=== PATIENT | male | born 1965 | race Caucasian/White ===

== ENCOUNTER → 2016-05-18 | Outpatient (CLI) | payer OTHER ==
--- NOTE | 2016-05-18 19:41 | DX ---
Bilateral Knees, AP standing, Esperanza And Lateral Views Reason for examination: Bilateral chronic knee pain in a 51-year-old male; no report of recent specif ic trauma. Findings: A fracture or other acute osseous abnormality is not identified. Bilateral degenerative ost eoarthritic changes are seen. There is joint space loss, bony spurring and sclerosis involving the me dial compartments bilaterally. Joint space loss is seen involving the patellofemoral compartments charly aterally. Hypertrophic degenerative changes in the patellofemoral compartment are more severe on the right. No significant joint effusion is seen. Intra-articular loose bodies are noted in the suprapate llar region on the right side. Impression: 1. Negative for fracture. 2. Degenerative osteoarthritic changes bilaterally most pronounced in the medial compartments bilater ally and in the right patellofemoral compartment.
== END ==
LOC: FIMAGING 18:44
PROVIDERS: ATTEND Registered Nurse
DX: M25.561 Pain in right knee (principal); M25.562 Pain in left knee

== ENCOUNTER 2016-06-06 23:28 | Observation (INO) | payer OTHER ==
--- NOTE | 2016-06-06 23:49 | EDPHY ---
H & P Stated Complaint: left abd pain since 2100 HPI/ROS: HPI CHIEF COMPLAINT: Abdominal pain HISTORY OF PRESENT ILLNESS: This patient is a very pleasant 51-year-old male, significant past medical history for chronic knee and feet pain takes Percocet, tells me that around 9 o'clock this evening he had abrupt onset left upper quadrant pain he describes as a sharp pain nonradiating he denies pain going to his left testicle or left lower quadrant he denies this pain coming from his back. Patient tells me that the pain is relentless, constant sharp left upper quadrant he denies chest pain or shortness of breath. Denies vomiting. Patient does endorse nausea when the pain becomes severe. Past Medical History: Chronic knee and feet pain Past Surgical History: Diverticulitis Social History: Denies use of drugs alcohol tobacco products Family History: Noncontributory ROS REVIEW OF SYSTEMS: A comprehensive 10 point review of systems is otherwise negative aside from elements mentioned in the history of present illness. Exam Constitutional triage nursing summary reviewed, vital signs reviewed, awake/ alert. Eyes normal conjunctivae and sclera, EOMI, PERRLA. HENT normal inspection, atraumatic, moist mucus membranes, no epistaxis, neck supple/ no meningismus, no raccoon eyes. Respiratory clear to auscultation bilaterally, normal breath sounds, no respiratory distress, no wheezing. Cardiovascular rate normal, regular rhythm, no murmur, no edema, distal pulses normal. Gastrointestinal soft, moderate, tender palpation in left upper quadrant , no rebound, no guarding, normal bowel sounds, no distension, no pulsatile mass. Genitourinary no CVA tenderness. Musculoskeletal no midline vertebral tenderness, full range of motion, no calf swelling, no tenderness of extremities, no meningismus, good pulses, neurovascularly intact. Skin pink, warm, & dry, no rash, skin atraumatic. Neurologic awake, alert and oriented x 3, AAOx3, moves all 4 extremities equally, motor intact, sensory intact, CN II-XII intact, normal cerebellar, normal vision, normal speech. Psychiatric normal mood/affect. Heme/Lymph/Immune no lymphadenopathy. Differential diagnosis includes but is not limited to and in no particular order : splenic infarct, kidney stone, Bowel obstruction, appendicitis, gallbladder disease, diverticulitis, colitis, enteritis, perforated viscus, gastritis, GERD , esophagitis, urinary tract infection, pyelonephritis, Medical Decision Making:this patient will have an IV established receive a fluid bolus, 1 mg IV Dilaudid for pain control, 4 mg IV Zofran for nausea we will obtain blood work including an I-STAT creatinine and he will have a CT scan abdomen pelvis with IV contrast to help delineate his severe left upper quadrant abdominal pain. Re-evaluation: EKG interpretation by me on record in [employer] system. Impression time of EKG is 12:09 a.m. this is sinus rhythm rate of 83, nonspecific intraventricular conduction delay present. There is no acute ischemic changes specifically no ST elevation, ST depression, T-wave abnormalities are prolonged intervals. CT scan of the abdomen pelvis with IV contrast The results of the study are this shows acute diverticulitis, this also shows a left distal ureteral stone 3 mm x 3 mm. There is hydronephrosis present. Bladder wall thickening. Also noted a right lung nodule that will need follow-up. The study was read by Dr. Orta. I viewed the images myself on the PACS system. 0145: this patient is a 3 mm UVJ stone. Also has acute diverticulitis. I have ordered him Cipro and Flagyl. Due to his ongoing abdominal pain and kidney stone diverticulitis will be admitted overnight to the hospitalist service for observation IV fluids, pain medicine. Unclear if he actually truly has acute diverticulitis however that is what the CT scan showing he is really not tender in his left lower quadrant. He has pain in his left upper quadrant an obvious kidney stone most likely causing his pain. Source: Patient - Personal History Current Tetanus/Diphtheria Vaccine: Unsure Current Tetanus Diphtheria and Acellular Pertussis (TDAP): Unsure - Medical/Surgical History Hx Asthma: No Hx Chronic Respiratory Disease: No Hx Diabetes: No Hx Cardiac Disease: No Hx Renal Disease: No Hx Cirrhosis: No Hx Alcoholism: No Hx HIV/AIDS: No Hx Splenectomy or Spleen Trauma: No Other PMH: diverticulitis, peripheral neuropathy, arthritis in knees and feet, - Social History Smoking Status: Former smoker Constitutional: Initial Vital Signs Temperature (C) 36.6 C 06/06/16 23:31 Heart Rate 90 06/06/16 23:31 Respiratory Rate 18 06/06/16 23:31 Blood Pressure 146/82 H 06/06/16 23:31 O2 Sat (%) 92 06/06/16 23:31 O2 Delivery Mode Room Air O2 (L/minute) 2 Allergies/Adverse Reactions: Penicillins Allergy (Severe, Verified 06/06/16 23:35) Anaphylaxis walnut Allergy (Severe, Verified 06/06/16 23:35) Anaphylaxis Home Medications: Medication Instructions Recorded HCTZ (*) 06/06/16 Levothyroxine 06/06/16 PRILOSEC 06/06/16 Medical Decision Making - Data Points Laboratory Results: Laboratory Results 06/07/16 00:10 06/07/16 00:10 06/07/16 06/07/16 06/07/16 00:45 00:10 00:04 WBC 8.32 10^3/uL (3.80-9.50) RBC 4.61 10^6/uL (4.40-6.38) Hgb 13.2 L g/dL (13.7-17.5) POC Hgb 13.6 L gm/dL (14.5-17.3) Hct 39.4 L % (40.0-51.0) POC Hct 40 L % (42.8-50.6) MCV 85.5 fL (81.5-99.8) MCH 28.6 pg (27.9-34.1) MCHC 33.5 g/dL (32.4-36.7) RDW 13.5 % (11.5-15.2) Plt Count 257 10^3/uL (150-400) MPV 8.7 fL (8.7-11.7) Neut % (Auto) 73.8 % (39.3-74.2) Lymph % (Auto) 16.9 % (15.0-45.0) [place] % (Auto) 7.6 % (4.5-13.0) Eos % (Auto) 1.1 % (0.6-7.6) Baso % (Auto) 0.2 L % (0.3-1.7) Nucleat RBC Rel Count 0.0 % (0.0-0.2) Absolute Neuts (auto) 6.14 10^3/uL (1.70-6.50) Absolute Lymphs (auto) 1.41 10^3/uL (1.00-3.00) Absolute Monos (auto) 0.63 10^3/uL (0.30-0.80) Absolute Eos (auto) 0.09 10^3/uL (0.03-0.40) Absolute Basos (auto) 0.02 10^3/uL (0.02-0.10) Absolute Nucleated RBC 0.00 10^3/uL (0-0.01) Immature Gran % 0.4 % (0.0-1.1) Immature Gran # 0.03 10^3/uL (0.00-0.10) PT 13.5 SEC (12.0-15.0) INR 1.04 (0.83-1.16) APTT 27.1 SEC (23.0-38.0) VBG Lactic Acid 2.1 mmol/L 2.0 mmol/L (0.7-2.1) (0.7-2.1) POC Sodium 140 mEq/L (134-144) Sodium 140 mEq/L (134-144) POC Potassium 3.6 mEq/L (3.3-5.0) Potassium 3.9 mEq/L (3.5-5.2) POC Chloride 101 mEq/L (96-108) Chloride 105 mEq/L (97-110) Carbon Dioxide 25 mEq/l (22-31) Anion Gap 10 mEq/L (8-16) POC BUN 18 mg/dL (7-23) BUN 19 mg/dL (7-23) Creatinine 1.1 mg/dL (0.7-1.3) POC Creatinine 1.2 mg/dL (0.8-1.5) Estimated GFR > 60 Glucose 122 H mg/dL (70-100) POC Glucose 126 H mg/dL (70-100) Calcium 9.0 mg/dL (8.5-10.4) Total Bilirubin 0.6 mg/dL (0.1-1.4) Conjugated Bilirubin 0.3 mg/dL (0.0-0.5) Unconjugated Bilirubin 0.3 mg/dL (0.0-1.1) AST 25 IU/L (17-59) ALT 38 IU/L (21-72) Alkaline Phosphatase 84 IU/L (38-126) Troponin I < 0.012 ng/mL (0-0.034) Total Protein 6.4 g/dL (6.3-8.2) Albumin 3.4 L g/dL (3.5-5.0) Lipase 34.0 IU/L (23-300) Urine Color Urine Appearance Urine pH Ur Specific [place] Urine Protein Urine Ketones Urine Blood Urine Nitrate Urine Bilirubin Urine Urobilinogen Ur Leukocyte Esterase Urine RBC Urine WBC Ur Epithelial Cells Urine Mucus Ur Culture Indicated? Urine Glucose 06/06/16 23:40 WBC RBC Hgb POC Hgb Hct POC Hct MCV MCH MCHC RDW Plt Count MPV Neut % (Auto) Lymph % (Auto) [place] % (Auto) Eos % (Auto) Baso % (Auto) Nucleat RBC Rel Count Absolute Neuts (auto) Absolute Lymphs (auto) Absolute Monos (auto) Absolute Eos (auto) Absolute Basos (auto) Absolute Nucleated RBC Immature Gran % Immature Gran # PT INR APTT VBG Lactic Acid POC Sodium Sodium POC Potassium Potassium POC Chloride Chloride Carbon Dioxide Anion Gap POC BUN BUN Creatinine POC Creatinine Estimated GFR Glucose POC Glucose Calcium Total Bilirubin Conjugated Bilirubin Unconjugated Bilirubin AST ALT Alkaline Phosphatase Troponin I Total Protein Albumin Lipase Urine Color YELLOW Urine Appearance CLEAR Urine pH 5.0 (5.0-7.5) Ur Specific [place] 1.013 (1.002-1.030) Urine Protein NEGATIVE (NEGATIVE) Urine Ketones NEGATIVE (NEGATIVE) Urine Blood 3+ H (NEGATIVE) Urine Nitrate NEGATIVE (NEGATIVE) Urine Bilirubin NEGATIVE (NEGATIVE) Urine Urobilinogen NEGATIVE EU (0.2-1.0) Ur Leukocyte Esterase NEGATIVE (NEGATIVE) Urine RBC 50-182 H /hpf (0-3) Urine WBC 1-3 /hpf (0-3) Ur Epithelial Cells TRACE /lpf (NONE-1+) Urine Mucus TRACE /lpf (NONE-1+) Ur Culture Indicated? NOT INDICATED (NI) Urine Glucose NEGATIVE (NEGATIVE) Medications Given: Discontinued Medications Hydromorphone HCl (Dilaudid) 1 mg IVP EDNOW ONE Stop: 06/06/16 23:54 Last Admin: 06/07/16 00:17 Dose: 1 mg Hydromorphone HCl (Dilaudid) 1 mg IVP EDNOW ONE Stop: 06/07/16 00:32 Last Admin: 06/07/16 00:40 Dose: 1 mg Sodium Chloride (Ns) 1,000 mls @ 0 mls/hr IV ONCE ONE PRN Reason: Wide Open Stop: 06/06/16 23:54 Last Admin: 06/07/16 00:16 Dose: 1,000 mls Morphine Sulfate (Morphine) 4 mg IVP EDNOW ONE Stop: 06/07/16 01:03 Last Admin: 06/07/16 01:04 Dose: 4 mg Ondansetron HCl (Zofran) 4 mg IVP EDNOW ONE Stop: 06/06/16 23:54 Last Admin: 06/07/16 00:17 Dose: 4 mg Point of Care Test Results: 06/07/16 00:04 POC Sodium 140 POC Potassium 3.6 POC Chloride 101 POC BUN 18 POC Creatinine 1.2 POC Glucose 126 H Departure - Departure Disposition: [facility] Inpatient Acute Clinical Impression: Calculus of left kidney Diverticulitis of intestine Qualifiers: Diverticulitis site: large intestine Diverticulitis bleeding: without bleeding Diverticulitis complication: without perforation or abscess Qualifier Code: ( K57.32) Diverticulitis of large intestine without perforation or abscess without bleeding Condition: Fair
[2016-06-06] MEDS ORDERED: NS 1,000 ML IV ONE (23:53)
[2016-06-06] MEDS ORDERED: ONDANSETRON 4 MG/2 ML VIAL IVP ONE (23:53)
[2016-06-06] MEDS ORDERED: HYDROmorphONE/DILAUDID 1 MG/ML SYR IVP ONE (23:53)
--- NOTE | 2016-06-07 00:11 | CPEKG ---
Heart Rate: 83 RR Interval: 723 P-R Interval: 164 QRSD Interval: 112 QT Interval: 396 QTC Interval: 466 P [place]: 21 QRS [place]: 62 T Wave [place]: 32 EKG Severity - ABNORMAL ECG - EKG Impression: SINUS RHYTHM EKG Impression: NONSPECIFIC INTRAVENTRICULAR CONDUCTION DELAY Electronically Signed By: Feliberto Reno 08-Jun-2016 22:23:17
[2016-06-07] MEDS ORDERED: IOPAMIDOL (ISOVUE-300) 100 ML BTL IV ONE (00:16)
[2016-06-07 00:28] LABS: % IMMATURE GRANULYOCYTES 0.4 % (0.0-1.1); ABSOLUTE IMMATURE GRANULOCYTES 0.03 10^3/uL (0.00-0.10); ADD DIFF? NO; ADD MORPH? NO; ADD SCAN? NO; ATYPICAL LYMPHOCYTE FLAG 10 (0-99); FRAGMENT RBC FLAG 0 (0-99); HEMATOCRIT 39.4 % (40.0-51.0); HEMOGLOBIN 13.2 g/dL (13.7-17.5); LEFT SHIFT FLG 0 (0-99); LIPEMIA HEMOLYSIS FLAG 80 (0-99); MEAN CELL HEMOGLOBIN 28.6 pg (27.9-34.1); MEAN CELL HEMOGLOBIN CONCENTR. 33.5 g/dL (32.4-36.7); MEAN CELL VOLUME 85.5 fL (81.5-99.8); MEAN PLATELET VOLUME 8.7 fL (8.7-11.7); PLATELET CLUMPS FLAG 10 (0-99); PLATELET COUNT 257 10^3/uL (150-400); RED BLOOD CELL COUNT 4.61 10^6/uL (4.40-6.38); RED CELL DISTRIBUTION WIDTH 13.5 % (11.5-15.2)
[2016-06-07 00:28] LABS: COLOR YELLOW; LEUKOCYTE ESTERASE,URINE NEGATIVE (NEGATIVE); NITRITE,URINE NEGATIVE (NEGATIVE)
[2016-06-07] MEDS ORDERED: HYDROmorphONE/DILAUDID 1 MG/ML SYR IVP ONE (00:31)
[2016-06-07 00:32] LABS: MUCUS TRACE /lpf (NONE-1+); RBC,URINE 50-182 /hpf (0-3)
[2016-06-07 00:38] LABS: INR 1.04 (0.83-1.16); PROTIME(PATIENT) 13.5 SEC (12.0-15.0)
[2016-06-07 00:39] LABS: APTT 27.1 SEC (23.0-38.0)
[2016-06-07 00:43] LABS: ALANINE AMINOTRANSFERASE 38 IU/L (21-72); ALBUMIN 3.4 g/dL (3.5-5.0); ALKALINE PHOSPHATASE 84 IU/L (38-126); ANION GAP 10 mEq/L (8-16); ASPARTATE AMINOTRANSFERASE 25 IU/L (17-59); BILIRUBIN,TOTAL 0.6 mg/dL (0.1-1.4); BILIRUBIN-CONJUGATED 0.3 mg/dL (0.0-0.5); BILIRUBIN-UNCONJUGATED 0.3 mg/dL (0.0-1.1); CARBON DIOXIDE 25 mEq/l (22-31); CHLORIDE 105 mEq/L (97-110); CREATININE 1.1 mg/dL (0.7-1.3); GLOMERULAR FILTRATION RATE > 60; GLUCOSE 122 mg/dL (70-100); POTASSIUM 3.9 mEq/L (3.5-5.2); SODIUM 140 mEq/L (134-144); TOTAL PROTEIN 6.4 g/dL (6.3-8.2)
[2016-06-07 00:56] LABS: TROPONIN I < 0.012 ng/mL (0-0.034)
[2016-06-07] MEDS ORDERED: CIPROFLOXACIN 400 MG/DEXTROSE 200 ML IV ONE (01:35)
[2016-06-07] MEDS ORDERED: LORazepam 2 MG/ML INJ IVP PRN (02:36)
[2016-06-07] MEDS ORDERED: oxyCODONE IR 5 MG TAB PO PRN (02:36)
[2016-06-07] MEDS ORDERED: ZOLPIDEM TARTRATE 5 MG TAB PO PRN (02:36)
[2016-06-07] MEDS ORDERED: PROMETHAZINE HCL 25 MG/ML INJ IVP PRN (02:36)
[2016-06-07] MEDS ORDERED: ACETAMINOPHEN 325 MG TAB PO PRN (02:36)
[2016-06-07] MEDS ORDERED: ONDANSETRON DISINTEGRATING 4 MG TAB PO PRN (02:36)
[2016-06-07] MEDS ORDERED: ONDANSETRON 4 MG/2 ML VIAL IVP PRN (02:36)
[2016-06-07] MEDS: NS 1,000 ML IV SCH ×3 (03:02→21:04)
[2016-06-07 05:19] LABS: % IMMATURE GRANULYOCYTES 0.6 % (0.0-1.1); ABSOLUTE IMMATURE GRANULOCYTES 0.06 10^3/uL (0.00-0.10); ADD DIFF? NO; ADD MORPH? NO; ADD SCAN? NO; ATYPICAL LYMPHOCYTE FLAG 0 (0-99); FRAGMENT RBC FLAG 0 (0-99); HEMATOCRIT 40.2 % (40.0-51.0); HEMOGLOBIN 13.1 g/dL (13.7-17.5); LEFT SHIFT FLG 30 (0-99); LIPEMIA HEMOLYSIS FLAG 80 (0-99); MEAN CELL HEMOGLOBIN 28.9 pg (27.9-34.1); MEAN CELL HEMOGLOBIN CONCENTR. 32.6 g/dL (32.4-36.7); MEAN CELL VOLUME 88.7 fL (81.5-99.8); MEAN PLATELET VOLUME 8.5 fL (8.7-11.7); PLATELET CLUMPS FLAG 10 (0-99); PLATELET COUNT 223 10^3/uL (150-400); RED BLOOD CELL COUNT 4.53 10^6/uL (4.40-6.38); RED CELL DISTRIBUTION WIDTH 13.4 % (11.5-15.2)
[2016-06-07 05:41] LABS: ANION GAP 9 mEq/L (8-16); CALCIUM 8.7 mg/dL (8.5-10.4); CARBON DIOXIDE 27 mEq/l (22-31); CHLORIDE 103 mEq/L (97-110); GLOMERULAR FILTRATION RATE > 60; GLUCOSE 136 mg/dL (70-100); SODIUM 139 mEq/L (134-144)
[2016-06-07 06:42] LABS: COLOR PALE YELLOW; LEUKOCYTE ESTERASE,URINE NEGATIVE (NEGATIVE); NITRITE,URINE NEGATIVE (NEGATIVE)
[2016-06-07 06:49] LABS: MUCUS TRACE /lpf (NONE-1+); RBC,URINE 50-182 /hpf (0-3)
--- NOTE | 2016-06-07 07:29 | GHP ---
[f rep st] HISTORY AND PHYSICAL DATE OF ADMISSION: 06/07/2016 CHIEF COMPLAINT: Abdominal pain. HISTORY OF PRESENT ILLNESS: This is a 51-year-old, morbidly obese, man with a past medical history o f diverticulitis as well as chronic pain related to his lower extremities, who presents with acute on set of left-sided abdominal pain. He notes it is different than his prior bouts of diverticulitis. It is not associated with nausea or vomiting. He has had about 1 month of painful urination he state s and has been seen by his usual doctors for this without any etiology found. He has never had a kid sri stone before. His last bout of diverticulitis was 2 years ago, at which time he did have a percu taneous abscess drainage performed. PAST MEDICAL HISTORY: 1. Recurrent diverticulitis. 2. Chronic knee and feet pain. 3. Morbid obesity. PAST SURGICAL HISTORY: Includes percutaneous abscess drainage as per HPI. FAMILY HISTORY: Multiple family members with kidney stones, heart disease and alcohol abuse. SOCIAL HISTORY: The patient is a nonsmoker, nondrinker, nondrug user. He is accompanied by his son. He is . REVIEW OF SYSTEMS: A 10-point review of systems obtained, negative except as per HPI. HOME MEDICATIONS: 1. Prilosec. 2. Levothyroxine. 3. Hydrochlorothiazide. ALLERGIES: Penicillin. PHYSICAL EXAM: VITAL SIGNS: BP 151/82, heart rate 88, respiratory rate 18, O2 sats 93% on 2 L. Tem perature is 36.9. GENERAL APPEARANCE: This is an awake and alert, obese male, he is in no acute dis tress. EYES: Anicteric. HEENT: Oropharynx clear, MMM. CARDIOVASCULAR: RRR, no MRG. PULMONARY: CTA bilaterally to anterior exam. ABDOMEN: Soft, bowel sounds are decreased, no rebound or guardin g. EXTREMITIES: No clubbing, cyanosis, or edema. SKIN: Warm dry well perfused. NEURO/PSYCH: Oriented and appropriate, pleasant. CLINICAL DATA: Labs reviewed. White blood cell count of 9.46, lactic acid of 2.1. Chemistry is rem arkable only for glucose of 136. UA shows 3+ blood, 50-180 red blood cells. Abdominal CT shows moderate left hydroureter with a 3 x 3 mm distal left ureteral stone. There is al so evidence of sigmoid diverticulitis without abscess or fistula. There is also a 5 x 8 mm posterior right lower lobe subpleural nodule and borderline prostate enlargement. EKG personally reviewed and interpreted as showing sinus rhythm and no acute ischemic findings. ASSESSMENT/PLAN: This is a 51-year-old, morbidly obese man presenting with abdominal pain and CT fin dings of both ureterolithiasis and sigmoid diverticulitis. 1. Ureterolithiasis. Pain is present on the left and the patient is quite clear that this is differ ent than his diverticulitis pain. He does have evidence of moderate hydroureter and, again, distal u reteral stone. Will start Flomax and IV fluids. He will strain his urine. Suspect this will pass o n its own given its size, but if he is not improving over the next 12 hours, will need a urology cons ultation. 2. Acute sigmoid diverticulitis without abscess or evidence of perforation. He has had recurrent is sues with this in the past, previously with abscess. He has been started on Cipro and Flagyl. Will keep patient n.p.o. for now and advance diet if his symptoms improve. 3. Hyperglycemia. This has been present on multiple occasions in the past. We will obtain a hemogl obin A1c, especially given his body habitus. 4. Pulmonary nodule. The patient is a lifetime nonsmoker. Therefore will require followup CT in 6- 12 months. This will need to be passed on both to the patient and to his primary care physician at d ischarge. 5. Disposition. Observation status. Suspect he will need less than 48 hours stay for evaluation an d management of above. 6. Patient is new to my care. Old records reviewed. Summary as per HPI and past medical history. Care plan reviewed with ER physician and further history obtained from patient's son present at [facility]. /[id number]/MODL
[2016-06-07 07:43] VITALS: RESP 16
[2016-06-07] MEDS ORDERED: ENOXAPARIN 40 MG/0.4 ML SYR SC SCH (09:00)
[2016-06-07] MEDS ORDERED: CIPROFLOXACIN 400 MG/DEXTROSE 200 ML IV SCH (09:00)
--- NOTE | 2016-06-07 09:34 | HOSPPROG ---
Hospitalist Progress Note Assessment/Plan: 51-year-old admitted overnight with left upper quadrant pain. He has a history of morbid obesity, previous diverticulitis and chronic narcotic dependency. CT scan revealed small 3 mm left kidney stone as well as possible diverticulitis. # nephrolithiasis. Small stone likely will pass on its own. Patient complaining of significant pain that is not being controlled with his current dose of morphine. * Add Toradol * Increase morphine * Resume home meds including Percocet # diverticulitis. Minimal tenderness on exam today, unclear how significant this is. * At clear liquids * Follow clinically * Continue IV antibiotics for now # chronic pain with chronic narcotic dependency patient likely has an element tolerance. * Resume home pain med regimen * Follow symptoms # hypothyroidism on levothyroxine # idiopathic peripheral neuropathy previously seen by Dr. Pickard currently followed at the pain clinic # dyslipidemia # DVT prophylaxis on Lovenox Subjective: Patient new to me, chart reviewed. Patient complaining of ongoing pain primarily in the left upper quadrant. He says this is not similar to his previous diverticular pain. Realizes he did not take any pain medications over night and is quite uncomfortable at this time. Objective: Vital Signs Temp Pulse Resp BP Pulse Ox 36.8 C 72 16 144/82 H 96 06/07/16 07:42 06/07/16 07:42 06/07/16 07:42 06/07/16 07:42 06/07/16 07:42 Laboratory Results 06/07/16 04:16 06/07/16 04:16 06/06/16 06/07/16 06/08/16 05:59 05:59 05:59 Intake Total 1467 Output Total 500 Balance 967 PT 13.5 SEC (12.0-15.0) 06/07/16 00:10 INR 1.04 (0.83-1.16) 06/07/16 00:10 - Physical Exam Constitutional: obese, uncomfortable, other (Patient does not appear to be in significant pain at the time of my exam) Eyes: PERRL, anicteric sclera Ears, Nose, Mouth, Throat: moist mucous membranes Cardiovascular: regular rate and rhythym, no murmur, rub, or gallop Respiratory: no respiratory distress, no rales or rhonchi, clear to auscultation , reduced air movement Gastrointestinal: normoactive bowel sounds, distension (Very mildly distended overall soft without any rebound or guarding) Genitourinary: no bladder tenderness Skin: warm, normal color Musculoskeletal: normal joint ROM, no joint effusions Neurologic: AAOx3, No facial droop Psychiatric: interacting appropriately ICD10 Worksheet Patient Problems: Problems Problem Status Diagnosed Diverticulitis Acute Kidney stone on left side Acute
[2016-06-07] MEDS: TAMSULOSIN HCL 0.4 MG CAP PO SCH (09:47)
[2016-06-07] MEDS: KETOROLAC 30 MG/1 ML SDV IVP PRN (09:47)
[2016-06-07] MEDS: LEVOTHYROXINE 75 MCG TAB PO SCH (09:48)
[2016-06-07] MEDS: ACETAMINOPHEN 325 MG TAB PO SCH ×3 (09:50→17:53)
--- NOTE | 2016-06-07 10:12 | CT ---
Contrast-Enhanced CT Scan of the Abdomen and Pelvis Clinical History: 51-year-old male presenting to the emergency department complaining of severe left upper quadrant point-tenderness. The patient denies any prior abdominal surgery. He has a normal white blood cell count; however, he has hematuria on urinalysis, and a prior history of diverticulitis. Technique: Neither oral nor retrograde rectal contrast were administered. The patient did receive 100 mL of Isovue 300 without complication, and a multidetector helical CT scan was obtained from the lung bases inferiorly through the proximal femora, with images reformatted at 5.00 and 1.50 mm increments, and reviewed at a variety of window/level settings. Parasagittal and paracoronal reconstructed images were reviewed on the workstation. The DFOV is 48.6 cm. Dose reduction protocol was used. Comparison Study: None available. Findings Contrast-Enhanced CT Scan of the Abdomen: There is some linear subsegmental atelectasis versus scar in the inferior right middle lobe. There is a 5 x 8 mm noncalcified subpleural nodule in the posterior right lower lobe. According to Fleischner Society guidelines, if the patient has a prior tobacco use history, initial follow-up CT at 3-6 months, then at 9-12 months, and 24 months if no change. If the patient does not have any prior tobacco use (and is therefore low risk), initial follow-up CT at 6-12 months, then at 18-24 months if no change. There is no pleural or pericardial effusion. The liver, gallbladder, pancreas, adrenal glands, and the right kidney are normal. The spleen is enlarged, measuring 14.6 x 5.8 x 12.7 cm. There is no evidence of a splenic infarct. There is a small accessory splenule (seen on series 4, image 90). There is left perinephric inflammation, and there is a moderate degree of left hydroureteronephrosis secondary to a distal ureterolith, measuring 3 x 3 x 3 mm , seen within the deep pelvis (not to the level of the ureterovesical junction yet). There is a fat-containing periumbilical hernia, and there is centripedal and subcutaneous obesity. The abdominal aorta and the IVC are normal in caliber. There is mild constipation. There is no abnormal small bowel dilatation. Some rare descending colon diverticula are noted. There is no free air. The abdominal aorta and IVC are normal in caliber. The osseous structures are age-appropriate. There is a normal appearance to the appendix in the right lower quadrant of the abdomen. Contrast-Enhanced CT Scan of the Pelvis: Numerous sigmoid colon diverticula are seen, and there is pericolonic inflammation with fat stranding, consistent with an acute sigmoid diverticulitis. The inflammation extends to the left upper urinary bladder wall, which is also thickened (probably reactive because of the adjacent diverticulitis). However, if there is persistent hematuria after the patient's treatment, cystoscopy may be indicated. There is no colovesical fistula at this time. The prostate gland is mildly enlarged, measuring 4.1 x 3.6 x 4.7 cm. The seminal vesicles are unremarkable. There is a 14 mm right external iliac lymph node. Impression: 1. Moderate left hydroureteronephrosis secondary to a distal left ureterolith, measuring 3 x 3 x 3 mm. 2. Sigmoid diverticulitis with some adjacent superior urinary bladder wall thickening, but no abscess or colovesical fistula at this time. After appropriate treatment, if there is persistent hematuria, cystoscopy may be indicated. 3. There is a 5 x 8 mm posterior right lower lobe subpleural nodule. Consider CT follow-up using the above algorithm. 4. Mild splenomegaly. 5. Fat-containing periumbilical hernia. 6. Borderline-prostate gland enlargement. I provided a preliminary interpretation to Dr. Michael Aviles at 12:50 a.m. on June 07, 2016 regarding the above findings. My final interpretation is concordant with my initial impression. [id number] POS 99 MTDD
[2016-06-07] MEDS: oxyCODONE IR 5 MG TAB PO SCH ×2 (13:40→17:54)
[2016-06-07] MEDS: CIPROFLOXACIN 400 MG/DEXTROSE 200 ML IV SCH (16:54)
[2016-06-07] MEDS: OXYMETAZOLINE 30 ML NASAL SPRAY EACHNARE SCH (18:34)
[2016-06-07] MEDS: GABAPENTIN 300 MG CAP PO SCH (19:28)
[2016-06-07] MEDS: ENOXAPARIN 40 MG/0.4 ML SYR SC SCH (21:35)
[2016-06-08] MEDS: ACETAMINOPHEN 325 MG TAB PO SCH ×2 (00:14→06:00)
[2016-06-08] MEDS: oxyCODONE IR 5 MG TAB PO SCH ×2 (00:15→05:59)
[2016-06-08] MEDS: KETOROLAC 30 MG/1 ML SDV IVP PRN (00:26)
[2016-06-08] MEDS: SIMETHICONE 80 MG TAB CHEW PO SCH ×2 (00:36→08:14)
[2016-06-08] MEDS: NS 1,000 ML IV SCH (03:23)
[2016-06-08] MEDS ORDERED: GABAPENTIN 400 MG CAP PO SCH (04:30)
[2016-06-08] MEDS: CIPROFLOXACIN 400 MG/DEXTROSE 200 ML IV SCH (04:44)
[2016-06-08 05:32] LABS: HEMATOCRIT 36.8 % (40.0-51.0); HEMOGLOBIN 11.9 g/dL (13.7-17.5); MEAN CELL HEMOGLOBIN 28.9 pg (27.9-34.1); MEAN CELL HEMOGLOBIN CONCENTR. 32.3 g/dL (32.4-36.7); MEAN CELL VOLUME 89.3 fL (81.5-99.8); RED BLOOD CELL COUNT 4.12 10^6/uL (4.40-6.38); RED CELL DISTRIBUTION WIDTH 13.2 % (11.5-15.2)
[2016-06-08] MEDS: LEVOTHYROXINE 75 MCG TAB PO SCH (06:00)
[2016-06-08 06:04] LABS: ANION GAP 6 mEq/L (8-16); CARBON DIOXIDE 25 mEq/l (22-31); CHLORIDE 109 mEq/L (97-110); CREATININE 1.5 mg/dL (0.7-1.3); GLOMERULAR FILTRATION RATE 49; GLUCOSE 104 mg/dL (70-100); POTASSIUM 4.7 mEq/L (3.5-5.2); SODIUM 140 mEq/L (134-144)
[2016-06-08] MEDS: TAMSULOSIN HCL 0.4 MG CAP PO SCH (08:14)
[2016-06-08] MEDS: ENOXAPARIN 40 MG/0.4 ML SYR SC SCH (08:14)
[2016-06-08 08:55] VITALS: BP 134/79; PULSE 81; TEMP 97.6; O2SAT 94
[2016-06-08] MEDS: OXYMETAZOLINE 30 ML NASAL SPRAY EACHNARE SCH (10:04)
--- NOTE | 2016-06-08 10:27 | GDS ---
[f rep st] DISCHARGE SUMMARY DIAGNOSES: 1. Nephrolithiasis. 2. Recurrent diverticulitis. 3. Chronic pain with chronic narcotic dependency. 4. Hypothyroidism. 5. Idiopathic peripheral neuropathy. 6. Dyslipidemia. 7. Pulmonary nodule. PROCEDURES DONE: Abdominal CT scan showing a 3 mm stone in the distal left ureter with mild hydronep hrosis. There is also a 5 x 8 mm posterior right lower lobe subpleural nodule. Recommendations are followup CT scan at 12 months and then at 18-24 months if no change. HOSPITAL COURSE: The patient is a 51-year-old man who comes in with left upper quadrant pain. CT sc an was done, which showed moderate hydronephrosis and a 3 mm ureteral stone. He also had evidence of inflammation and possible diverticulitis of his left sigmoid colon. His main complaints were left u pper quadrant pain and really had no tenderness along his colon. He was admitted, placed on IV antib iotics as well as aggressive hydration, Flomax, and Toradol. His pain became controlled and toward t he end of his hospitalization he felt that he may have passed a stone into the bladder because his pa in had essentially resolved. He has not yet passed the stone completely. Throughout his workup, lis t of the above procedures, this did show a very small subpulmonary nodule which needs followup scanni ng as listed above. CONDITION ON DISCHARGE: Good. Vital signs are stable. He is comfortable. Abdomen is soft. DISCHARGE MEDICATIONS: Please see discharge medication form. Additionally, he will be placed on Cip ro and Flagyl to complete a week for possible diverticulitis and Flomax for the next 2 weeks until he passes the stone completely. FOLLOWUP INSTRUCTIONS: He should follow up with his primary care provider at [facility]. He needs a followup CT scan for his pulmonary nodule in 6-12 months and again at 18-24 months if nodu le stable. Total time spent with patient on day of discharge and coordination of care was 35 minutes. /[id number]/MODL
[2016-06-08] MEDS: GABAPENTIN 300 MG CAP PO SCH (11:14)
[2016-06-09 05:09] LABS: HEMOGLOBIN A1C 5.8 % (4.0-6.0)
== END 2016-06-08 11:28 | disposition home or self-care (01) ==
LOC: INTOOBSV 06-07 01:37 → F3E 06-07 02:12
PROVIDERS: ADMIT Internal Medicine; ATTEND Internal Medicine
DX: N20.0 Calculus of kidney (principal); K57.92 Diverticulitis of intestine, part unspecified, without perforation or abscess without bleeding; G89.29 Other chronic pain; R73.9 Hyperglycemia, unspecified; F11.20 Opioid dependence, uncomplicated; E03.9 Hypothyroidism, unspecified; G60.9 Hereditary and idiopathic neuropathy, unspecified; E78.5 Hyperlipidemia, unspecified; R91.1 Solitary pulmonary nodule; E66.01 Morbid (severe) obesity due to excess calories; Z68.41 Body mass index [BMI] 40.0-44.9, adult
CPT/HCPCS: 74177; 93005; 97165; G0378; 82947-QW; 96374; J0744; J1170; J1650; J1885; J2405; Q9967

== ENCOUNTER → 2016-08-12 | Outpatient (CLI) | payer OTHER | LOC: FIMAGING 14:09 | PROVIDERS: ATTEND Radiology Diagnostic Radiology | DX: M48.06 Spinal stenosis, lumbar region (principal); M46.96 Unspecified inflammatory spondylopathy, lumbar region ==

== ENCOUNTER → 2016-08-12 | Outpatient (CLI) | payer OTHER | LOC: FIMAGING 14:26 | DX: M53.2X6 Spinal instabilities, lumbar region (principal); M51.36 Other intervertebral disc degeneration, lumbar region; M51.26 Other intervertebral disc displacement, lumbar region ==

== ENCOUNTER → 2017-04-28 | Outpatient (CLI) | payer OTHER | LOC: FCPNEURO 23:14 | PROVIDERS: ATTEND Student in an Organized Health Care Education/Training Program | DX: G47.33 Obstructive sleep apnea (adult) (pediatric) (principal); G47.39 Other sleep apnea ==